=== PATIENT | male | born 1990 | race Caucasian/White ===

== ENCOUNTER 2023-01-29 15:41 | Emergency (ER) | payer OTHER ==
--- OUTSIDE RECORDS SUMMARY | 2023-01-29 15:45 | XMS REPORT | Continuity of Care Document ---
:1990 Author Organization [facility] t Address [address] [facility] [address] [place] [address] Care Team Providers Name Role Phone SHARPLESS Primary Care Physician Unavailable AUSTIN SINGLETARY Attending Clinician Unavailable MARIAM GUZMÁN Attending Clinician Gregory Beal Attending Clinician Payers Payer Name Policy Type Policy Number Effective Date Expiration Date [facility] [place] D [id number] 2014 Traditional 00:00:00 MEDICAID PENDING NA [facility] IVAN CARE NA [place] PENDING [facility] Problems Condition Condition Condition Status Onset Resolution Last Treating Co mments Source Name Details Category Date Date Treatment Clinician Date Low back Low back Problem Active [facility] Musculoske Musculoske Problem Active H [facility] letal pain letal pain ll e [facility] Allergies, Adverse Reactions, Alerts Allergy Allergy Status Severity Reaction(s) Onset Inactive Treating Comm ents Source Name Type Date Date Clinician Penicill Propensi Active Anaphylaxis 2020-[address] [facility] 05[facility]29 [facility] adverse [facility]: Medical reaction 00 Center s PENICILL Allergy Active High Anaphylaxis 2020-04 [facility] IN 05-29 00:00: 00 [place] Allergy Active [place] ins to 11-28 lle Substanc 00:00: [facility] NO KNOWN Allergy Active [facility] Social History Social Habit Start Date Stop Date Quantity Comments Source History of tobacco Smokes tobacco [facility] use daily [facility] Center Cigarettes smoked 2021-03-28 2021-03-[address] [facility] current (pack per 00:00:00 00:00:00 Medical Center day) - Reported Tobacco use and 2021-03-28 2021-03-28 Smokeless tobacco [facility] exposure [facility]00 00:00:00 non-user [facility] Center Alcohol intake 2021-03-28 2021-03-28 Current drinker [facility] 00:00:00 00:00:00 of alcohol [facility] Center (finding) Alcohol Comment 2013-06-01 2013-06-01 "a 6 pack a day" [facility] 00:[facility]:00 Medical Center Sex Assigned At [birth year] [facility] leilanis 00:00:00 00:00:00 [facility] Smoking Status Start Date Stop Date Source Smokes tobacco daily 2021-03-28 00:00:[address] [facility] Medications Ordered Filled Start Stop Current Ordering Indication Dosage Frequency Signature Comments Components Source Medication Medication Date Date Medication? Clinician (SIG) Name Name ACETAMINOPH ACETAMINOPH Yes QUINN [place] EVERY SIX [place] EN EN 8-23 [place] HOURS lle W/CODEINE W/CODEINE 00:00: NEEDED as [facility] #3 #3 00 needed for l (TYLENOL/CO (TYLENOL/CO PAIN H ospita DEINE #3 DEINE #3 l TAB) 300 TAB) 300 MG/30 MG MG/30 MG TAB TAB Ketorolac Ketorolac Yes QUINN [place] 10 EVERY SIX [place] Tromethamin Tromethamin 8 [place] HOURS lle e e 00:00: NEEDED as [facility] (KETOROLAC (KETOROLAC 00 needed for l 10 MG TAB) 10 MG TAB) PAIN Hos faustino 10 MG TAB 10 MG TAB l METAXALONE METAXALONE Yes QUINN [place] 800 THREE TIME [place] (METAXALONE (METAXALONE 8 [place] A [facility]le 800 MG TAB) 800 MG TAB) 00:00: DAY(09;15; [facility] 800 MG TAB 800 MG TAB 00 21) l Hospita l acetaminoph Yes 650mg Take [address] en 2-24 mg by [facility] (TYLENOL) 21:37: mouth Medical 325 MG 13 every 6 Center tablet (six) hours as needed. Vital Signs Vital Name Observation Time Observation Value Comments Source WEIGHT 2021-03-28 19:18:00 102.558 kg WEIGHT 2021-03-28 19:06:00 104.327 kg HEIGHT 2021-03-28 19:06:00 185.4 cm WEIGHT 2021-03-28 19:18:00 102.558 kg WEIGHT 2021-03-28 19:06:00 104.327 kg HEIGHT 2021-03-28 19:06:00 185.4 cm Procedures Procedure Date / Time Performing Clinician Source Performed LEFT HAND 4 VIEW 2018-02-02 00:00:00 [facility] LEFT FOREARM 2018-02-02 00:00:00 [facility] CBCA W/PLT & AUTO 2017-11-11 00:00:00 [facility] COMPREHENSIVE METABOLIC 2017-11-11 00:00:00 [facility] URINE DRUG 2017-11-11 00:00:00 [facility] ROUTINE URINALYSIS 2017-11-11 00:00:00 [facility] SALICYLATES 2017-11-11 00:00:00 [facility] ALCOHOL 2017-11-11 00:00:00 [facility] ACETAMINOPHEN LEVEL 2017-11-11 00:00:00 [facility] Plan of Care Planned Activity Planned Date Details Comments Source Future Scheduled 2022-12-07 Influenza Vaccine (#1) [facility] 00:[facility]00 [code = Influenza Vaccine [facility] (#1)] Future Scheduled 2022-04-[address] [facility] Test 00:00:00 (12+) [code = DEPRESSION [facility] Center SCREENING (12+)] Future Scheduled 2022-03-[address] [facility] Test 00:00:00 Counseling and Screening [facility] Center (12+) [code = Tobacco Cessation Counseling and Screening (12+)] Future Scheduled 2008 Lipid panel (procedure) [facility] Test 00:00:00 [code = 66951944] Medical Ce nter Future Scheduled 2007-10-14 DTAP/TDAP/TD VACCINES ([address] [facility] Test 00:00:00 - Tdap) [code = Medical Cent er DTAP/TDAP/TD VACCINES (1 - Tdap)] Future Scheduled 2006 HEPATITIS C [facility]CRE[facility]ING [facility] 00:00:00 [code = HEPATITIS C Medical Center SCREENING] Future Scheduled 2003-10-[address] [facility] Test 00:00:00 virus screening Medical Cent er (procedure) [code = 444625033] Future Scheduled 1994 Pneumococcal Vaccine: [facility] Test 00:00:00 0-64 Years (1 - PCV) Medical Center [code = Pneumococcal Vaccine: 0-64 Years (1 - PCV)] Future Scheduled 1989-04-15 COVID-19 VACCINE (#1) [facility] Test 00:00:00 [code = COVID-19 VACCINE [facility] Center (#1)] Encounters Start End Encounter Admission Attending Care Care Encounter Source Date/Time Date/Time Type Type Clinicians Facility Department ID 2021-07-01 Outpatient [facility] [id number] [place] 03:39:42 [id number] [facility] 2021-03-28 2021-03-28 Emergency ER [facility] Emergency [id number] [facility] 19:10:00 21:34:00 [place]IN 2018-02-02 2018-02-02 Departed [facility] [id number] [address] Miguel 18:00:00 20:49:00 Emergency MARIAM 02 [facility]le [facility] 2017-11-11 2017-11-12 Departed Lian [facility] [id number] [address] Miguel 22:17:00 08:09:00 Emergency Gregory 99 lle [facility] Results Test Description Test Time Test Comments Results Result Comments Source SARS-COV2/INFLUENZA/RSV RT-PCR 2021-03-28 22:27:35 Test Item Value Reference Range Interpretation Comme nts SARS-COV2/RT-PCR (test code = Negative Negative The SARS-CoV-2 target nucleic 6446460) acids are not d etected in this specimen. Negat tashi results do not preclude SA RS-CoV-2 infection and s hould not be used as the sole bas is for patient management deci sions. Negative results must be combined with clinical observ ations, patient history, and ep idemiological information. A false negative result may occu r if a specimen is improperly c ollected, transported or handled. This SARS CoV-2 test is a rapid, real-time RT-PC R test intended for the qualita tive detection of nucleic acid fr om SARS-CoV-2 in a nasopharyngea l swab specimen collected from individuals suspected of CO VID-19 by their healthcare prov ider. INFLUENZA A RT-PCR (test code = Negative Negative The Flu A target nucleic acids 2575575) are not detecte d in this specimen. INFLUENZA B RT-PCR (test code = Negative Negative The Flu B target nucleic acids 7607019) are not detecte d in this specimen. RSV RT-PCR (test code = 7559140) Negative Negative The RSV target nucleic acids are not detected in this specimen. The presence of SARS-CoV-2/FLU/RSV viral nucleic acids cannot rule out co- infections or disease caused by other viral or bacterial pathogens. As with any molecular test, mutations within the target regions of the Xpert Xpress SARS-CoV-2/Flu/RSV test could affect primer and/or probe binding resulting in failure to detect the presence of virus or the virus being detected less predictably. False negative results may occur if the virus is present at levels below the analytical limit of detection in thisspecimen.This Xpert Xpress SARS-CoV-2/Flu/RSV test is a rapid, real-time RT-PCR test intended for the qualitative detection of nucleic acid from Xpert Xpress SARS-CoV-2/Flu/RSV in a nasopharyngeal swabspecimen collected from individuals suspected of Xpert Xpress SARS-CoV-2/Flu/RSV by their healthcareprovider. Results from [facility] Xpert Xpress SARS-CoV-2/Flu/RSV test should be correlated with the clinical history, epidemiological data, and other data available to the clinician evaluating the patient. Viral nucleic acid may persist in vivo, independent of virus viability. Detection of analyte target(s)does not imply that the corresponding virus(es) are infectious or are the causative agents for clinical symptoms.This test has not been Food and Drug Administration (FDA) cleared or approved and has been authorized by FDA under an Emergency Use Authorization (EUA). This EUA will be effective until thedeclaration that circumstances exist justifying the authorization of the emergency use of in vitro diagnostic tests for detection and/or diagnosis of COVID-19 is terminated under Section 564(b)(2) of the Act or the EUA is revoked under Section 564(g) of the Act.Fact Sheet for Healthcare Providers:https ://www.[employer]/Documents/Xpert%20Xpress%20SARS%20CoV-2/Fact%20Sheets/302-390 2%02DOUN-KAQ-5%20HEALTHCARE%20PROVIDERS%20FACT%20SHEET.pdfFact Sheet for Healthcare Patients:https://www.[employer]/Docum ents/Xpert%20Xpress%20SARS%20Cov-2/Fact%20Sheets/302-3801%88SNLM-YJT-5%20PATIENT %20FACT%20SHEET.pdfRAD, CHEST, 2 [id number] 21:07:00Reason for exam:->[facility] : 1990 Sex: MFINAL REPORT RAD, CHEST, 2 VIEWS TECHNIQUE: Frontal and lateral views of the chest. INDICATION: SINUSITIS COMPARISON: None. FINDINGS: Lungs: The lungs are well inflated and clear. No consolidation or pulmonary edema. Pleura: No pleural effusion or pneumothorax. Heart and Mediastinum: Thecardiomediastinal silhouette is within normal limits. Lines/Tubes: None. Soft Tissues and Bones: Unremarkable. IMPRESSION:No radiographic evidence for acute cardiopulmonary disease. Signed: Ellis Mckinnon Verified Date/Time: 03/28/2021 21:07:56 Reading Location: [address] Consult Reading Room Alanine Aminotransferase (ALT/SGPT) 2017-11-11 23:13:00 Test Item Value Reference Range Interpretation Comments Alanine Aminotransferase (ALT/SGPT) 29 7-55 (test code = 1742-6) [facility] HospitalAspartate Amino Transf (AST/SGOT)2017-11-11 23:13:00 Test Item Value Reference Range Interpretation Comments Aspartate Amino Transf (AST/SGOT) (test 25 15-41 code = 1920-8) [facility] HospitalGlobulin2018-08-06 23:13:00 Test Item Value Reference Range Interpretation Comments Globulin (test code = 93989-4) 3.5 2.3-3.5 [facility] HospitalAlbumin/Globulin [id number] 23:13:00 Test Item Value Reference Range Interpretation Comments Albumin/Globulin Ratio (test code = 1.2 1.2-2.2 1759-0) [facility] HospitalAlcohols2018-08-06 23:13:00 Test Item Value Reference Range Interpretation Comments Alcohols (test code = 5643-2) 77 0-5 H [facility] HospitalAcetaminophen [id number] 23:13:00 Test Item Value Reference Range Interpretation Comments Acetaminophen Level (test code = < 10 10-30 L 3298-7) THERAPEUTIC: 10-30 ug/mLPOTENTIAL HEPATIC TOXICITY: >150-200 ug/mL Consult appropriate nomogram (for acute ingestion only) forprobability of hepatic toxicity. Blood samples should not beobtained earlier than 4 hours after ingestion to ensurecomplete absorption. If the time of ingestion is unknown or unreliable, or if extended release preparations have beeningested, or if there has been co-ingestionof drugs thatmay delay gastric emptying, serial determinations of serumlevels taken 2-3 hours apart are recommended to estimate theacetaminophen elimination half-life. Hepatotoxicty is moreprobable when the half-life is greater than 4 hours andhepatic coma is likely when the half-life is greater than 12hours.[facility] Centeralicylates [id number] 23:13:00 Test Item Value Reference Range Interpretation Comments Salicylates Level (test code = 4024-6) < 4 4-29 L [facility] HospitalBlood Urea [id number] 23:13:00 Test Item Value Reference Range Interpretation Comments Blood Urea Nitrogen (test code = 11 8-26 3094-0) [facility] HospitalCreatinine2018-08-06 23:13:00 Test Item Value Reference Range Interpretation Comments Creatinine (test code = 2160-0) 0.9 0.61-1.24 [facility] HospitalAlbumin2018-08-06 23:13:00 Test Item Value Reference Range Interpretation Comments Albumin (test code = 1751-7) 4.2 3.5-5.0 [facility] [id number] 23:13:00 Test Item Value Reference Range Interpretation Comments Total Bilirubin (test code = 1975-2) < 0.1 0.3-1.2 L [facility] HospitalAlkaline [id number] 23:13:00 Test Item Value Reference Range Interpretation Comments Alkaline Phosphatase (test code = 67 32-91 6768-6) [facility] HospitalTotal [id number] 23:13:00 Test Item Value Reference Range Interpretation Comments Total Protein (test code = 2885-2) 7.7 6.5-8.1 [facility] HospitalEGFR [id number] 23:12:00 Test Item Value Reference Range Interpretation Comments EGFR Note (test code = 93665-8) 138.9 59.3-175.8 eGFR (Estimated Glomerular Filtration Rate) eGFR calculation value obtained using the [facility] ErQuadratic (Q) equation. The reportable reference range isrecommended to be greater than 60 ml/min/1.73m. This is anestimation of the patient's GFR and clinical correlation isrecommended. This eGFR calculation does not account for race. This resultmay differ from other equations available. [facility] HospitalUrine Cannabinoids [id number] 23:06:00 Test Item Value Reference Range Interpretation Comments Urine Cannabinoids Screen (test code POSITIVE NEGATIVE A = 10670-7) [facility] HospitalPhencyclidine (PCP) [id number] 23:06:00 Test Item Value Reference Range Interpretation Comments Phencyclidine (PCP) Screen (test NEGATIVE NEGATIVE code = Phencyclidine (PCP) Screen) [facility] HospitalCocaine [id number] 23:06:00 Test Item Value Reference Range Interpretation Comments Cocaine Screen (test code = 3397-7) NEGATIVE NEGATIVE [facility] Methamphetamines [id number] 23:06:00 Test Item Value Reference Range Interpretation Comments Urine Methamphetamines Screen (test POSITIVE NEGATIVE A code = 99273-5) [facility] HospitalOpiates [id number] 23:06:00 Test Item Value Reference Range Interpretation Comments Opiates Screen (test code = 92959-6) NEGATIVE NEGATIVE [facility] Amphetamines [id number] 23:06:00 Test Item Value Reference Range Interpretation Comments Urine Amphetamines Screen (test code POSITIVE NEGATIVE A = 63106-5) [facility] HospitalBenzodiazepines [id number] 23:06:00 Test Item Value Reference Range Interpretation Comments Benzodiazepines Screen (test code = NEGATIVE NEGATIVE 34652-9) [facility] HospitalTricyclic Antidepressants [id number] 23:06:00 Test Item Value Reference Range Interpretation Comments Tricyclic Antidepressants Screen NEGATIVE NEGATIVE (test code = 57596-1) [facility] HospitalMethadone [id number] 23:06:00 Test Item Value Reference Range Interpretation Comments Methadone Screen (test code = NEGATIVE NEGATIVE 32224-3) [facility] Barbiturates [id number] 23:06:00 Test Item Value Reference Range Interpretation Comments Urine Barbiturates Screen (test code NEGATIVE NEGATIVE = 74872-8) [facility] HospitalOxycodone [id number] 23:06:00 Test Item Value Reference Range Interpretation Comments Oxycodone Screen (test code = NEGATIVE NEGATIVE 67661-5) [facility] HospitalPropoxyphene [id number] 23:06:00 Test Item Value Reference Range Interpretation Comments Propoxyphene Screen (test code = NEGATIVE NEGATIVE 23741-0) [facility] Buprenorphine [id number] 23:06:00 Test Item Value Reference Range Interpretation Comments Urine Buprenorphine Screen (test NEGATIVE NEGATIVE code = 3414-0) CUT OFF CONCENTRATIONS:AMPHETAMINE 500 ng/mlBARBITURATES 200 ng/mlBENZODIAZEPINES 150 ng/mlBUPRENORPHINE 10 ng/mlCOCAINE 150 ng/mlMETHAMPHETAMINE 500 ng/mlMETHADONE 200 ng/mlOPIATES 100 ng/mlOXYCODONE 100 ng/mlPHENCYCLIDINE 25 ng/mlPROPOXYPHENE 300 ng/mlCANNIBINOIDS 50 ng/mlTRICYCLIC IBEPDQUXDOWWWXJ066 ng/ml ATTENTION:It is important to remember that the MEDTOX device, likeother instant drug testing immunoassays are screening testsand they give a preliminary result. A presumptive positiveresult(s) should be explored for possible alternativeexplanations- i.e. known related/unrelated cross reactivecompounds, etc. Alternative, more specific methods likeGC/MS OR LC/MS should be utilized to obtain adefinitiveconfirmed quantitative result. A presumptive positive result for any drug does not indicatethe level of intoxication, administration route orconcentration of that drug in the urine specimen. A negative result may not necessarily indicate drug-freeurine. Negative results can be obtained when drug is presentbut below the cut-off level of the test.[facility] [id number] 23:06:00 Test Item Value Reference Range Interpretation Comments Urine RBC (test code = 69715-5) 0-2 0-2 [facility] HospitalUrine [id number] 23:06:00 Test Item Value Reference Range Interpretation Comments Urine WBC (test code = 5821-4) 0-2 0-2 [facility] Epithelial [id number] 23:06:00 Test Item Value Reference Range Interpretation Comments Urine Epithelial Cells (test code = 0-2 0-2 21294-9) [facility] [id number] 23:06:00 Test Item Value Reference Range Interpretation Comments Urine Bacteria (test code = 79337-5) FEW NEG [facility] Centerodium [id number] 23:03:00 Test Item Value Reference Range Interpretation Comments Sodium Level (test code = 2951-2) 139 135-144 [facility] HospitalPotassium [id number] 23:03:00 Test Item Value Reference Range Interpretation Comments Potassium Level (test code = 2823-3) 3.5 3.5-5.1 [facility] HospitalChloride [id number] 23:03:00 Test Item Value Reference Range Interpretation Comments Chloride Level (test code = 2075-0) 110 101-111 [facility] HospitalCarbon Dioxide [id number] 23:03:00 Test Item Value Reference Range Interpretation Comments Carbon Dioxide Level (test code = 24 22-32 8-9) [facility] HospitalAnion [id number] 23:03:00 Test Item Value Reference Range Interpretation Comments Anion Gap (test code = 17438-1) 8.5 10-20 L [facility] HospitalGlucose [id number] 23:03:00 Test Item Value Reference Range Interpretation Comments Glucose Level (test code = 2345-7) 97 65-99 Prediabetes 100 to 125 mg/dlDiabetes 126mg/dl or higher Prediabetes refers to individuals with plasma glucose levelsintermediate between those considered normal and thoseconsidered diabetic and is also referred to as impairedglucose tolerance (IGT) or impaired fasting glucose (IFG). [facility] HospitalCalcium [id number] 23:03:00 Test Item Value Reference Range Interpretation Comments Calcium Level (test code = 47900-9) 8.7 8.9-10.3 L [facility] HospitalWhite Blood [id number] 23:02:00 Test Item Value Reference Range Interpretation Comments White Blood Count (test code = 6690-2) 11.6 4.8-10.8 H [facility] HospitalRed Blood [id number] 23:02:00 Test Item Value Reference Range Interpretation Comments Red Blood Count (test code = 789-8) 4.67 4.70-6.00 L [facility] HospitalHemoglobin2018-08-06 23:02:00 Test Item Value Reference Range Interpretation Comments Hemoglobin (test code = 718-7) 13.4 13.5-17.5 L [facility] HospitalHematocrit2018-08-06 23:02:00 Test Item Value Reference Range Interpretation Comments Hematocrit (test code = 60038-8) 40.7 42.0-52.0 L [facility] Corpuscular [id number] 23:02:00 Test Item Value Reference Range Interpretation Comments Mean Corpuscular Volume (test code = 87.3 80.0-100.0 49181-9) [facility] Corpuscular [id number] 23:02:00 Test Item Value Reference Range Interpretation Comments Mean Corpuscular Hemoglobin (test code 28.7 27.0-31.0 = 785-6) [facility] Corpuscular Hgb Concent Crbk1417-11-05 23:02:00 Test Item Value Reference Range Interpretation Comments Mean Corpuscular Hgb Concent Diff (test 32.8 32.0-36.0 code = 786-4) [facility] HospitalRed Cell Distribution [id number] 23:02:00 Test Item Value Reference Range Interpretation Comments Red Cell Distribution Width (test code 13.7 11.5-14.5 = 788-0) [facility] HospitalPlatelet [id number] 23:02:00 Test Item Value Reference Range Interpretation Comments Platelet Count (test code = 777-3) 324 130-400 [facility] Platelet [id number] 23:02:00 Test Item Value Reference Range Interpretation Comments Mean Platelet Volume (test code = 8.0 03939-3) [facility] HospitalGranulocytes (%)2017-11-11 23:02:00 Test Item Value Reference Range Interpretation Comments Granulocytes (%) (test code = 79451-2) 67.6 50.0-75.0 [facility] HospitalLymphocytes %2017-11-11 23:02:00 Test Item Value Reference Range Interpretation Comments Lymphocytes % (test code = 736-9) 23.2 20.0-40.0 [facility] HospitalMonocytes %2017-11-11 23:02:00 Test Item Value Reference Range Interpretation Comments Monocytes % (test code = 5905-5) 6.8 0.0-15.0 [facility] HospitalEosinophils %2017-11-11 23:02:00 Test Item Value Reference Range Interpretation Comments Eosinophils % (test code = 713-8) 1.8 0.0-10.0 [facility] HospitalBasophils %2017-11-11 23:02:00 Test Item Value Reference Range Interpretation Comments Basophils % (test code = 06046-5) 0.6 0.0-2.0 [facility] HospitalGranulocytes #2017-11-11 23:02:00 Test Item Value Reference Range Interpretation Comments Granulocytes # (test code = 25564-0) 7.9 1.8-6.4 H [facility] HospitalLymphocytes #2017-11-11 23:02:00 Test Item Value Reference Range Interpretation Comments Lymphocytes # (test code = 13398-0) 2.7 1.2-3.6 [facility] HospitalMonocytes #2017-11-11 23:02:00 Test Item Value Reference Range Interpretation Comments Monocytes # (test code = 742-7) 0.8 0.3-0.9 [facility] HospitalEosinophils #2017-11-11 23:02:00 Test Item Value Reference Range Interpretation Comments Eosinophils # (test code = 711-2) 0.2 0.0-0.5 [facility] HospitalBasophils #2017-11-11 23:02:00 Test Item Value Reference Range Interpretation Comments Basophils # (test code = 54870-4) 0.1 0.0-0.2 [facility] HospitalManual [id number] 23:02:00 Test Item Value Reference Range Interpretation Comments Manual Differential (test code = Manual NO Differential) [facility] [id number] 22:57:00 Test Item Value Reference Range Interpretation Comments Urine Color (test code = 5778-6) YELLOW YELLOW [facility] [id number] 22:57:00 Test Item Value Reference Range Interpretation Comments Urine Appearance (test code = 5767-9) CLEAR CLEAR [facility] [id number] 22:57:00 Test Item Value Reference Range Interpretation Comments Urine Glucose (test code = 5792-7) NEGATIVE NEGATIVE [facility] [id number] 22:57:00 Test Item Value Reference Range Interpretation Comments Urine Bilirubin (test code = 1978-6) NEGATIVE NEGATIVE [facility] [id number] 22:57:00 Test Item Value Reference Range Interpretation Comments Urine Ketones (test code = 5797-6) NEGATIVE NEGATIVE [facility] Specific [id number] 22:57:00 Test Item Value Reference Range Interpretation Comments Urine Specific Pine (test code = 1.015 1.002-1.030 2965-2) [facility] [id number] 22:57:00 Test Item Value Reference Range Interpretation Comments Urine Blood (test code = 91177-3) NEGATIVE NEGATIVE [facility] [id number] 22:57:00 Test Item Value Reference Range Interpretation Comments Urine pH (test code = 5803-2) 5.5 4.5-8.0 [facility] [id number] 22:57:00 Test Item Value Reference Range Interpretation Comments Urine Protein (test code = 2888-6) TRACE NEGATIVE A [facility] [id number] 22:57:00 Test Item Value Reference Range Interpretation Comments Urine Urobilinogen (test code = 0.2 >0.2 25799-9) [facility] [id number] 22:57:00 Test Item Value Reference Range Interpretation Comments Urine Nitrite (test code = 5802-4) NEGATIVE NEGATIVE [facility] Leukocyte [id number] 22:57:00 Test Item Value Reference Range Interpretation Comments Urine Leukocyte Esterase (test code = TRACE NEGATIVE A 5799-2) [facility] Microscopic [id number] 22:57:00 Test Item Value Reference Range Interpretation Comments Urine Microscopic Indicated (test code YES NO = Urine Microscopic Indicated) [facility]
[2023-01-29] MEDS ORDERED: NA CHLORIDE 0.9% 1,000 ML ONE (16:44)
[2023-01-29] MEDS ORDERED: ONDANSETRON 4 MG/2 ML VIAL ONE (16:44)
[2023-01-29] MEDS ORDERED: FAMOTIDINE 20 MG/2 ML VIAL IV ONE (16:44)
[2023-01-29 17:09] LABS: Hematocrit 40.2 % (39.6-49.0); Lymphocytes % 30.5 % (15.3-44.8); MCV 85.3 fL (80-100); MPV 7.9 fL (7.6-11.3); Platelets 377 thou/uL (152-406); RBC Red Blood Cell Count 4.71 M/uL (4.33-5.43)
--- NOTE | 2023-01-29 18:01 | RAD REPORT ---
[facility] CLINICAL HISTORY: COUGH COMPARISON: No comparisons TECHNIQUE: Portable AP view of the chest. FINDINGS: The lungs are clear. No pneumothorax or effusion. The cardiomediastinal contours are unre markable. IMPRESSION: No acute cardiopulmonary process.
[2023-01-29 18:31] LABS: Albumin 3.7 g/dL (3.4-5.0); Bilirubin Total 0.1 mg/dL (0.2-1.0); Potassium 3.8 mEq/L (3.5-5.1)
--- NOTE | 2023-01-29 19:56 | RAD REPORT ---
EXAM DESCRIPTION: CT - Abdomen Pelvis W Contrast - 01/29/2023 6:48 pm CLINICAL HISTORY: ABD PAIN COMPARISON: No comparisons TECHNIQUE: Thin cut axial CT imaging of the abdomen and pelvis was performed following intravenous a dministration of 100 mL Isovue 300. Multiplanar reformats were generated and reviewed. All CT scans are performed using dose optimization technique as appropriate and may include automated exposure control or mA/KV adjustment according to patient size. FINDINGS: No suspicious findings in the lung bases. The liver, spleen, adrenal glands, and pancreas show no suspicious findings. Gallbladder and biliary tree are also without suspicious finding. Symmetric renal function is seen with no hydronephrosis or suspicious renal mass. Two- 3 millimeter l eft renal calculi. No dilated bowel loops or bowel wall thickening. No free air, free fluid or inflammatory stranding. N o hernia, mass or bulky lymphadenopathy. The urinary bladder is without significant finding. No suspicious bony findings. IMPRESSION: Two- three millimeter left renal calculi. No other acute intra-abdominal process.
--- NOTE | 2023-01-29 20:02 | ER ---
Nurse's Notes [facility] Name: Justin Mendoza Age: 32 yrs Sex: Male : 1990 Arrival Date: 01/29/2023 Time: 15:41 Bed 9 Private MD: Diagnosis: Abdominal pain, Generalized Presentation: 01/29 16:00 Chief complaint: Patient states: he vomited once today and had black specks in his cm10 vomit and he has been coughing with bright red blood in his phlegm. Coronavirus screen: Vaccine status: Patient reports being unvaccinated. Client denies travel out of the [place] in the last 14 days. Ebola Screen: Patient denies travel to an Ebola-affected area in the 21 days before illness onset. No symptoms or risks identified at this time. Initial Sepsis Screen: Does the patient meet any 2 criteria? No. Patient's initial sepsis screen is negative. Does the patient have a suspected source of infection? No. Patient's initial sepsis screen is negative. Risk Assessment: Do you want to hurt yourself or someone else? Patient reports no desire to harm self or others. Onset of symptoms was January 29, 2023. 16:00 Method Of Arrival: Ambulatory cm10 16:00 Acuity: STACEY 3 cm10 Triage Assessment: 16:05 General: Appears in no apparent distress. comfortable, Behavior is calm, cooperative. cm10 Historical: - Allergies: 16:05 PENICILLINS; cm10 - Home Meds: 16:05 None [Active]; cm10 - PMHx: 16:05 None; cm10 - PSHx: 16:05 None; cm10 - Immunization history:: Adult Immunizations unknown. - Social history:: Smoking status: Patient reports the use of cigarette tobacco products, smokes one pack cigarettes per day. Screenin:30 [facility] ED Fall Risk Assessment (Adult) Score/Fall Risk Level 0 - 2 = Low Risk. Abuse eh3 screen: Denies threats or abuse. Denies injuries from another. Nutritional screening: No deficits noted. Tuberculosis screening: No symptoms or risk factors identified. Assessment: 16:30 General: Appears in no apparent distress. comfortable, Behavior is cooperative, eh3 appropriate for age, anxious. Pain: Complains of pain in left lower quadrant and left upper quadrant. Neuro: Level of Consciousness is awake, alert, obeys commands, Oriented to person, place, time, situation. Cardiovascular: Capillary refill < 3 seconds Patient's skin is warm and dry. Respiratory: Airway is patent Respiratory effort is even, unlabored, Respiratory pattern is regular, symmetrical. GI: Abdomen is round non-distended, Bowel sounds present X 4 quads. Abd is soft and non tender X 4 quads. Reports nausea, vomiting. Derm: Skin is pink, warm \T\ dry. Musculoskeletal: Circulation, motion, and sensation intact. Range of motion: intact in all extremities. 17:00 Reassessment: Patient appears in no apparent distress at this time. Patient and/or 3 family updated on plan of care and expected duration. Pain level reassessed. Patient is alert, oriented x 3, equal unlabored respirations, skin warm/dry/pink. 18:00 Reassessment: Patient appears in no apparent distress at this time. Patient and/or 3 family updated on plan of care and expected duration. Pain level reassessed. Patient is alert, oriented x 3, equal unlabored respirations, skin warm/dry/pink. Vital Signs: 16:00 BP 129 / 95; Pulse 87; Resp 16; Temp 98.2; Pulse Ox 100% ; Weight 99.79 kg; Height 6 cm10 ft. 1 in. ; Pain 7/10; 17:00 BP 121 / 83; Pulse 68; Resp 16; Pulse Ox 98% on R/A; eh3 18:00 BP 111 / 94; Pulse 72; Resp 16; Pulse Ox 99% on R/A; eh3 16:00 Body Mass Index 29.03 (99.79 kg, 185.42 cm) cm10 16:00 Pain Scale: Adult cm10 ED Course: 15:48 Patient arrived in ED. kj1 15:55 Lindsay Soares FNP-C is PHCP. kb 15:55 Justus Meadows MD is Attending Physician. kb 16:05 Triage completed. cm10 16:05 Arm band placed on Patient placed in waiting room. cm10 16:29 Marylin Emmanuel, RN is Primary Nurse. eh3 16:30 Patient has correct armband on for positive identification. Bed in low position. Call eh3 light in reach. Side rails up X2. Provided Education on: Use of call mcnally. Pulse ox on. NIBP on. 16:41 Chest Single View XRAY In Process Unspecified. EDMS 16:45 Missed attempt(s): 20 gauge in right upper arm. Bleeding controlled, band aid applied, eh3 catheter tip intact. 16:50 Initial lab(s) drawn, by me, sent to lab. eh3 17:21 Inserted saline lock: 22 gauge in left antecubital area, using aseptic technique. Blood mb9 collected. 18:50 CT Abd/Pelvis - IV Contrast Only In Process Unspecified. EDMS 20:18 No provider procedures requiring assistance completed. IV discontinued, intact, eh3 bleeding controlled, No redness/swelling at site. Pressure dressing applied. Administered Medications: 17:15 Drug: Famotidine IVP 20 mg IVP once; dilute with 10 mL 0.9% NaCl; give over 2 minutes eh3 Route: IVP; Site: left antecubital; 18:01 Follow up: Response: No adverse reaction 3 17:15 Drug: Ondansetron IVP 4 mg IVP once; over 2 minutes Route: IVP; Site: left antecubital; eh3 18:01 Follow up: Response: No adverse reaction 3 17:21 Drug: NS 0.9% IV 1000 ml IV at 1 bolus Per protocol; 1000 mL bolus Route: IV; Rate: 1 mb9 bolus; Site: left antecubital; 19:00 Follow up: IV Status: Completed infusion; IV Intake: 1000ml 3 Medication: 20:18 VIS not applicable for this client. eh3 Intake: 19:00 IV: 1000ml; Total: 1000ml. 3 Outcome: 20:02 Discharge ordered by . kb 20:18 Discharged to home ambulatory, [facility] 20:18 Condition: stable 20:18 Discharge instructions given to patient, Instructed on discharge instructions, follow up and referral plans. medication usage, Demonstrated understanding of instructions, follow-up care, medications, Prescriptions given X 3, 20:18 Patient left the ED. 3 Signatures: Dispatcher [employer] EDLindsay Wilson, SCARLETT BARRON-Madyson Mcdonald kj1 Marylin Emmanuel RN RN eh3 Roma Loo RN RN mb9 Petra Fink RN RN cm10
--- NOTE | 2023-01-29 20:03 | EDPHYS ---
Physician Documentation [facility] Name: Justin Mendoza Age: 32 yrs Sex: Male : 1990 Arrival Date: 01/29/2023 Time: 15:41 Bed 9 Private MD: ED Physician Justus Meadows HPI: 01/29 16:05 This 32 yrs old Male presents to ER via Unassigned with complaints of Abdominal Pain. kb 16:05 The patient presents with abdominal pain in the left upper quadrant, in the left lower kb quadrant. Onset: The symptoms/episode began/occurred today. The symptoms do not radiate. Associated signs and symptoms: Pertinent positives: nausea and vomiting, Pertinent negatives: fever. The symptoms are described as constant. Modifying factors: The symptoms are alleviated by nothing, the symptoms are aggravated by nothing. Severity of pain: At its worst the pain was moderate in the emergency department the pain is unchanged. The patient has experienced a previous episode. The patient has not recently seen a physician. Pt reports left sided abd pain, nausea, vomiting that started today. Reports he believes there was blood in the emesis and the was also coughing up blood afterwards. . Historical: - Allergies: 16:05 PENICILLINS; cm10 - Home Meds: 16:05 None [Active]; cm10 - PMHx: 16:05 None; cm10 - PSHx: 16:05 None; cm10 - Immunization history:: Adult Immunizations unknown. - Social history:: Smoking status: Patient reports the use of cigarette tobacco products, smokes one pack cigarettes per day. ROS: 16:07 Constitutional: Negative for fever, chills, and weight loss, kb 16:07 Respiratory: Positive for cough, hemoptysis, 16:07 Abdomen/GI: Positive for abdominal pain, nausea and vomiting, hematemesis, 16:07 All other systems are negative, Exam: 16:07 Constitutional: This is a well developed, well nourished patient who is awake, alert, kb and in no acute distress. Head/Face: Normocephalic, atraumatic. ENT: Moist Mucous membranes Cardiovascular: Regular rate Respiratory: Respirations even and unlabored. No increased work of breathing. Talking in full sentences Skin: Warm, dry with normal turgor. Normal color. MS/ Extremity: Pulses equal, no cyanosis. Neurovascular intact. Full, normal range of motion. Neuro: Awake and alert, GCS 15, oriented to person, place, time, and situation. Moves all extremities. Normal gait. 16:07 Abdomen/GI: Inspection: abdomen appears normal, Bowel sounds: normal, Palpation: soft, in all quadrants, mild abdominal tenderness, in the left upper quadrant and left lower quadrant, Vital Signs: 16:00 BP 129 / 95; Pulse 87; Resp 16; Temp 98.2; Pulse Ox 100% ; Weight 99.79 kg; Height 6 cm10 ft. 1 in. ; Pain 7/10; 17:00 BP 121 / 83; Pulse 68; Resp 16; Pulse Ox 98% on R/A; eh3 18:00 BP 111 / 94; Pulse 72; Resp 16; Pulse Ox 99% on R/A; eh3 16:00 Body Mass Index 29.03 (99.79 kg, 185.42 cm) cm10 16:00 Pain Scale: Adult cm10 MDM: 15:55 Patient medically screened. kb 16:07 Data reviewed: vital signs, nurses notes. kb 16:19 Differential diagnosis: diverticulitis, gastritis, gastroesophageal reflux disease, GI kb Bleed, non-specific abd pain, pancreatitis. 19:58 Counseling: I had a detailed discussion with the patient and/or guardian regarding the kb historical points, exam findings, and any diagnostic results supporting the discharge/admit diagnosis, lab results, radiology results, the need for outpatient follow up, a family practitioner, to return to the emergency department if symptoms worsen or persist or if there are any questions or concerns that arise at home. 01/29 16:07 Order name: CBC with Diff; Complete Time: 17:16 kb 01/29 16:07 Order name: CMP; Complete Time: 18:42 kb 01/29 16:07 Order name: Lipase; Complete Time: 18:42 kb 01/29 16:07 Order name: Chest Single View XRAY; Complete Time: 18:03 kb 01/29 16:07 Order name: CT Abd/Pelvis - IV Contrast Only; Complete Time: 19:57 kb 01/29 16:07 Order name: IV Saline Lock; Complete Time: 17:21 kb 01/29 16:07 Order name: Labs collected and sent; Complete Time: 17:21 kb 01/29 17:13 Order name: Labs - recollect needed: recollect green top; Complete Time: 17:22 bd Administered Medications: 17:15 Drug: Famotidine IVP 20 mg IVP once; dilute with 10 mL 0.9% NaCl; give over 2 minutes 3 Route: IVP; Site: left antecubital; 18:01 Follow up: Response: No adverse reaction 3 17:15 Drug: Ondansetron IVP 4 mg IVP once; over 2 minutes Route: IVP; Site: left antecubital; 3 18:01 Follow up: Response: No adverse reaction 3 17:21 Drug: NS 0.9% IV 1000 ml IV at 1 bolus Per protocol; 1000 mL bolus Route: IV; Rate: 1 mb9 bolus; Site: left antecubital; 19:00 Follow up: IV Status: Completed infusion; IV Intake: 1000ml 3 Disposition Summary: 01/29/23 20:02 Discharge Ordered Notes: Location: Home kb Condition: Stable kb Diagnosis - Abdominal pain, Generalized kb Followup: kb - With: Emergency Department - When: As needed - Reason: Worsening of condition Followup: kb - With: Private Physician - When: 2 - 3 days - Reason: Recheck today's complaints, Continuance of care, Re-evaluation by your physician Discharge Instructions: - Discharge Summary Sheet kb - Abdominal Pain, Adult, [id number] kb Forms: - Medication Reconciliation Form kb - Thank You Letter kb - Antibiotic Education kb - Prescription Opioid Use kb - Patient Portal Instructions kb - Leadership Thank You Letter kb Prescriptions: - Protonix 40 mg Oral Tablet - take 1 tablet ORAL route once daily; 30 tablet; Refills: 0, Product Selection kb Permitted - Zofran 4 mg Oral tablet - take 1 tablet ORAL route every 6 hours As needed; 12 tablet; Refills: 0, kb Product Selection Permitted - dicyclomine 20 mg Oral tablet - take 1 tablet ORAL route 4 times per day As needed; 20 tablet; Refills: 0, kb Product Selection Permitted Signatures: Dispatcher [employer] Lindsay Khan FNP-C FNP-Jahaira Treviño Erin, RN RN eh3 Roma Loo RN RN mb9 Petra Fink RN RN cm10
== END 2023-01-29 20:18 | disposition home or self-care (01) ==
LOC: ER 15:41
DX: R10.84 Generalized abdominal pain (principal); R11.2 Nausea with vomiting, unspecified; F17.210 Nicotine dependence, cigarettes, uncomplicated; Z88.0 Allergy status to penicillin
CPT/HCPCS: 85025; 36415; 83690; 80053; 74177; 71045; Q9967; J2405; J7030